=== PATIENT | male | born 1950 | race Caucasian/White ===

== ENCOUNTER → 2024-04-03 06:38 | Day surgery (SDC) | payer MEDICARE, SELFPAY | LOC: GI 06:38 | PROVIDERS: ATTENDING PHYSICIAN Internal Medicine Gastroenterology; FAMILY PHYSICIAN Nurse Practitioner Family | DX: Z12.11 Encounter for screening for malignant neoplasm of colon (principal); D12.5 Benign neoplasm of sigmoid colon; D12.2 Benign neoplasm of ascending colon; D12.3 Benign neoplasm of transverse colon; D12.4 Benign neoplasm of descending colon; K62.1 Rectal polyp; Z86.010 Personal history of colon polyps; Z83.719 Family history of colon polyps, unspecified; Z80.0 Family history of malignant neoplasm of digestive organs | CPT/HCPCS: 45385; 45380; 88305 ==

== ENCOUNTER 2025-09-02 14:08 | Emergency (ER) | payer MEDICARE, SELFPAY ==
[2025-09-02] VITALS (11 sets, daily range): BP systolic 150–194; BP diastolic 81–108; BMI 29.1
--- NOTE | 2025-09-02 15:13 | ED.GENMED ---
History of Present Illness
<CHANEL Lorenz - Last Filed: 09/02/25 17:18>
General
Chief Complaint: Fall
Source: patient and family
Exam Limitations: none
Time Seen by Provider: 09/02/25 15:03
Nursing documentation reviewed up to this point in time: agreed with
History of Present Illness
History of Present Illness:
Patient is a 75-year-old male with history of Parkinson's presents to the ER for evaluation. Patient [place] walking [place] a [place] and fell back hitting his right back on a rock. His family was behind him and caught him so he
did not hit his head however he still hit his back. He complains of pain to the right posterior back rib area worse with taking a deep breath worse with moving. He is not on blood thinners. He denies any headache neck pain
Past History
<CHANEL Lorenz - Last Filed: 09/02/25 17:18>
Past History
ED Past Medical History: Cancer, HTN, Hypercholesterolemia and Psychiatric
ED Past Surgical History: Orthopedic and Other
Social History
Tobacco: Non-smoker
Alcohol: None
Personal:
Living: with family
Employment: Employed
Family History
Family History: Other
Phy Exam
<CHANEL Lorenz - Last Filed: 09/02/25 17:18>
General Physical Exam
General Presentation: no apparent distress
General age: appears stated age
General Skin: warm and dry
General Habitus: normal
General Mental: alert
General Hydration: appears well hydrated
Cardiovascular Exam
Cardiovascular Exam: regular rate/rhythm, no murmur and normal peripheral pulses
Pulmonary Exam
Pulmonary Exam: lungs clear, no respiratory distress and other (posterior right rib ecchymosis no crepitus )
Gastrointestinal Exam
Gastrointestinal Exam: non tender and soft
Neurological Exam
Neurological Exam: alert and oriented x3
Musculoskeletal Exam
Musculoskeletal Exam: full ROM and other (No obvious head injury on exam no bony cervical thoracic tenderness patient is tender to the right posterior back posterior ribs/flank region ecchymosis to this area)
Skin Exam
Skin Exam: normal color and warm/dry
Psychiatric Exam
Psychiatric Exam: normal mood/affect
Course
<CHANEL Lorenz - Last Filed: 09/02/25 17:18>
Orders/Labs/Results
Orders:
Orders
09/02/25 15:14
Cardiac Monitoring- Treatment ONCE
IV Insert/Care/Rem.- Treatment PRN
0.9% Sodium Chloride 1000 ml [Nss] 1,000 ml IV BOLUS
Morphine Sulfate 4 mg IV NOW STA
09/02/25 15:16
CT Chest/abd/pel W Iv Cont Urgent
Comment:
Reason For Exam: right posterior rib/flank trauma
09/02/25 15:28
Complete Blood Count/With Diff Urgent
Comprehensive Metabolic Panel Urgent
Urinalysis Reflex To Culture Urgent
Date Specimen was Collected: 09/02/25
Time Specimen was Collected: 15:26
Urine Microscopic Reflex Cult Urgent
09/02/25 16:37
HYDROmorphone [Dilaudid] 1 mg IV NOW STA
09/02/25 18:23
Ketorolac [Toradol] 15 mg IV NOW STA
Lidocaine [Lidocaine 4% Patch] 1 patch TOPICAL NOW STA
Apply Lidocaine patch(s) to:: R flank
Incentive Spirometry [Rx Incentive Spirometry] [RESP] Urgent
Frequency: q1h while awake
Abnormal Lab Results
09/02/25
15:28
RBC 4.31 L 10^6/uL
(4.70-6.10)
Hct 37.7 L %
(39.0-52.0)
Absolute Monos (auto) 0.7 H 10^3/uL
(0.1-0.6)
Lymphocytes % 15.3 L %
(20.5-51.1)
Glucose 102 H mg/dl
(70-99)
Urine Ketones 1+ A
(Negative)
Ur Occult Blood Reflex 2+ A
(Negative)
Urine Bacteria (Reflex) Few A
(Negative)
Urine Albumin (Reflex) 2+ A
(Neg - Trace)
09/02/25 15:28
09/02/25 15:28
Vital Signs
Initial and Last Documented VS:
Initial Vital Signs
Temp Pulse Resp Pulse Ox
98.2 F 63 16 98
09/02/25 14:11 09/02/25 14:11 09/02/25 14:11 09/02/25 14:11
Last Documented Vital Signs
Temp Pulse Resp BP Pulse Ox
99.2 F 65 16 150/92 96
09/02/25 19:30 09/02/25 19:30 09/02/25 19:30 09/02/25 19:30 09/02/25 19:30
<Chan Cowan PA-C - Last Filed: 09/02/25 22:58>
Orders/Labs/Results
Orders:
Orders
09/02/25 15:14
Cardiac Monitoring- Treatment ONCE
IV Insert/Care/Rem.- Treatment PRN
0.9% Sodium Chloride 1000 ml [Nss] 1,000 ml IV BOLUS
Morphine Sulfate 4 mg IV NOW STA
09/02/25 15:16
CT Chest/abd/pel W Iv Cont Urgent
Comment:
Reason For Exam: right posterior rib/flank trauma
09/02/25 15:28
Complete Blood Count/With Diff Urgent
Comprehensive Metabolic Panel Urgent
Urinalysis Reflex To Culture Urgent
Date Specimen was Collected: 09/02/25
Time Specimen was Collected: 15:26
Urine Microscopic Reflex Cult Urgent
09/02/25 16:37
HYDROmorphone [Dilaudid] 1 mg IV NOW STA
09/02/25 18:23
Ketorolac [Toradol] 15 mg IV NOW STA
Lidocaine [Lidocaine 4% Patch] 1 patch TOPICAL NOW STA
Apply Lidocaine patch(s) to:: R flank
Incentive Spirometry [Rx Incentive Spirometry] [RESP] Urgent
Frequency: q1h while awake
Abnormal Lab Results
09/02/25
15:28
RBC 4.31 L 10^6/uL
(4.70-6.10)
Hct 37.7 L %
(39.0-52.0)
Absolute Monos (auto) 0.7 H 10^3/uL
(0.1-0.6)
Lymphocytes % 15.3 L %
(20.5-51.1)
Glucose 102 H mg/dl
(70-99)
Urine Ketones 1+ A
(Negative)
Ur Occult Blood Reflex 2+ A
(Negative)
Urine Bacteria (Reflex) Few A
(Negative)
Urine Albumin (Reflex) 2+ A
(Neg - Trace)
09/02/25 15:28
09/02/25 15:28
Vital Signs
Initial and Last Documented VS:
Initial Vital Signs
Temp Pulse Resp Pulse Ox
98.2 F 63 16 98
09/02/25 14:11 09/02/25 14:11 09/02/25 14:11 09/02/25 14:11
Last Documented Vital Signs
Temp Pulse Resp BP Pulse Ox
99.2 F 65 16 150/92 96
09/02/25 19:30 09/02/25 19:30 09/02/25 19:30 09/02/25 19:30 09/02/25 19:30
<CHANEL Lorenz - Last Filed: 09/02/25 17:18>
MDM/Problems Addressed
Differential Diagnosis Includes:
Not limited to renal contusion; rib fracture, contusion
MDM/Problems Addressed:
Patient is a 75 male who fell while hiking and landed on his right posterior back. Patient is ecchymosis and tenderness to posterior ribs/flank region. CAT scan ordered. No head injury no nausea vomiting no blood thinners.
1640: Care patient's time transferred to FRANKLIN Muñiz.
<CHANEL Lorenz - Last Filed: 09/02/25 17:18>
*Pulse Oximetry
SaO2: 98
Oxygen Mode of Delivery: Room air
Patient hypoxic: no
<Chan Cowan PA-C - Last Filed: 09/02/25 22:58>
*Critical Care Note
Total Time (30-74mins, 75-104mins- exclusive of procedures): Not Applicable
<Chan Cowan PA-C - Last Filed: 09/02/25 22:58>
Update Note
Update Note:
Assumed care of patient from Rohini Jamison NP pending imaging. Imaging reveals rib fractures of right 11th and 12th ribs as well as an L1 transverse process fracture. No internal viscus injury is noted. His pain is well-controlled at this time
he is able to ambulate at his baseline. He denies dyspnea. Plan for discharge with analgesics
ED Attending Note
<CHANEL Lorenz - Last Filed: 09/02/25 17:18>
-
Portions of this chart may have been created with voice recognition software.� Occasional wrong word or��sound alike� substitutions may have occurred due to the inherent limitations of voice recognition software.
Discharge Plan
Departure
Patient Disposition: Home (Routine Discharge)
Date of Disposition: 09/02/25
Time of Disposition: 19:02
Patient with high blood pressure during this ER visit?: No
Discharge Problem:
Multiple fractures of ribs, Closed fracture of transverse process of lumbar vertebra
Instructions: Back exercises, Rib fracture or bruised rib - ED (DC)
Prescriptions:
New
diclofenac sodium 75 mg tablet,delayed release (DR/EC)
75 mg PO BID PRN (Reason: Pain) Qty: 20 0RF
oxycodone 5 mg capsule
5 mg PO Q8H PRN (Reason: Pain) Qty: 10 0RF
No Action
atorvastatin 20 MG tablet
20 mg PO QPM
clonazepam 0.5 MG tablet
0.5 mg PO DAILY
venlafaxine [Effexor XR] 150 MG capsule,extended release 24hr
150 mg PO DAILY
dextroamphetamine-amphetamine [Adderall] 30 MG tablet
30 mg PO DAILY
mirtazapine 45 MG tablet
45 mg PO DAILY
hydrochlorothiazide 25 MG tablet
25 mg PO DAILY
aripiprazole 2 MG tablet
2 mg PO DAILY
levomefolate calcium [Deplin] 15 MG tablet
15 mg PO DAILY
tamsulosin [Flomax] 0.4 MG capsule
0.4 mg PO DAILY Qty: 5 0RF
oxycodone-acetaminophen [Percocet] 1 EACH tablet
1 tab PO Q6HPRN PRN (Reason: pain) Qty: 14 0RF
Referrals:
Keaton Vaelncia MD [Family Provider, Family Practice]
Activity Restrictions/Additional Instructions:
Use the incentive spirometer twice daily, 5-8 breaths each time, for 7-10 days. This will help improve your chest wall function
Use over the counter lidocaine patches in addition to prescribed pain medicines. you may use Tylenol in addition to what I have prescribed, DO NOT USE IBUPROFEN/ADVIL/MOTRIN
Follow up with your primary care doctor this week
Interventions
Interventions:
*Risk Screen - Suicide Last Done: 09/02/25 14:11
*General Assessment Last Done: 09/02/25 15:46
*Neglect/Abuse Screening Last Done: 09/02/25 14:11
*ED- Fall Risk Assessment Last Done: 09/02/25 15:46
*ED COVID-19 Vaccine History Last Done: 09/02/25 15:46
*ED Influenza Vaccine History Last Done: 09/02/25 15:46
*Nursing Disposition Last Done: 09/02/25 19:32
ED-Musculoskeletal Assessment Last Done: 09/02/25 15:59
ED- Neurological Assessment Last Done: 09/02/25 15:46
ED-Skin Assessment Last Done: 09/02/25 18:56
Discharge Date and Time
Discharge Date/Time: 09/02/25 19:36
Print Language: SAMI
[2025-09-02] MEDS: NSS 1000 IV (15:34)
[2025-09-02 15:37] LABS: Hematocrit 37.7 % (39.0-52.0); Hemoglobin 13.3 g/dL (13.0-18.0); Mean Corp Hgb Conc. 35.3 g/dL (33.0-37.0); Mean Corpuscular Volume 87.5 fL (80.0-94.0); Nucleated Red Blood Cells % 0 % (-); Platelet Count 167 10^3/uL (130-400); Red Cell Dist. Width 12.7 % (11.5-14.5)
[2025-09-02] MEDS: MORPHINE SULFATE 4 MG IV (15:38)
[2025-09-02 15:40] LABS: Urine Character Clear (Clear)
[2025-09-02 15:45] LABS: Urine Red Blood Cell 0-2 /HPF (0-2); Urine Squamous Cell 0-2 /LPF (Few); Urine White Cell 0-2 /HPF (0-5)
[2025-09-02 15:54] LABS: ALT (SGPT) < 10 U/L (0-50); AST (SGOT) 26 U/L (17-59); Albumin 4.5 g/dl (3.5-5.0); Alkaline Phosphatase 80 U/L (38-126); Blood Urea Nitrogen 20 mg/dl (9-20); Calcium 9.4 mg/dl (8.4-10.2); Carbon Dioxide 27 mmol/L (22-30); Chloride 106 mmol/L (98-107); Glucose 102 mg/dl (70-99); Potassium 4.3 mmol/L (3.5-5.1); Sodium 140 mmol/L (135-145); Total Protein 7.2 g/dl (6.3-8.2); eGFR > 60.00
[2025-09-02] MEDS: DILAUDID 1 MG IV (16:51)
[2025-09-02] MEDS: TORADOL 15 MG IV (18:43)
--- NOTE | 2025-09-02 18:43 | EDRN ---
the pt stated he is overdue for his home prescribed Carbidopa-levodopa 20-300mg due at 1800. the pt stated he brought the pills with him and is asking if he can take them. Per ER SANTOS Garcia verbal approval, the pt was allowed to take his home
prescribed medication Carbidopa-levodopa 20-300mg at this time.
[2025-09-02] MEDS: LIDOCAINE 4% PATCH 1 PATCH TOPICAL (18:53)
== END 2025-09-02 19:36 | disposition home or self-care (01) ==
LOC: EMR 14:08
PROVIDERS: Nurse Practitioner; EMERGENCY PHYSICIAN Emergency Medicine; FAMILY PHYSICIAN Family Medicine
DX: S22.41XA Multiple fractures of ribs, right side, initial encounter for closed fracture (principal); S32.018A Other fracture of first lumbar vertebra, initial encounter for closed fracture; S30.13XA Contusion of flank (latus) region, initial encounter; W18.30XA Fall on same level, unspecified, initial encounter; Y93.01 Activity, walking, marching and hiking; Y92.828 Other wilderness area as the place of occurrence of the external cause; I10 Essential (primary) hypertension; E78.00 Pure hypercholesterolemia, unspecified; G20.A1 Parkinson's disease without dyskinesia, without mention of fluctuations
CPT/HCPCS: 71260; 74177; 80053; 81003; 81015; 85025; 96361; 96374; 96375; 99285; Q9967

== ENCOUNTER → 2025-11-08 17:33 | Outpatient (REF) | payer MEDICARE, SELFPAY | LOC: MRI 17:33 | PROVIDERS: ATTENDING PHYSICIAN Student in an Organized Health Care Education/Training Program; FAMILY PHYSICIAN Obstetrics & Gynecology | DX: R26.89 Other abnormalities of gait and mobility (principal) | CPT/HCPCS: 70553; A9575 ==

== ENCOUNTER 2025-11-16 06:22 | Outpatient (RCR) | payer MEDICARE, SELFPAY | END 2025-11-16 23:59 | disposition home or self-care (01) | LOC: RST 06:22 | PROVIDERS: ATTENDING PHYSICIAN Student in an Organized Health Care Education/Training Program; FAMILY PHYSICIAN Family Medicine | DX: G20.A1 Parkinson's disease without dyskinesia, without mention of fluctuations (principal); R49.0 Dysphonia; R47.1 Dysarthria and anarthria | CPT/HCPCS: 92507; 92524 ==